=== PATIENT | female | born 1980 | race Caucasian/White ===

== ENCOUNTER 2018-03-05 20:26 | Emergency (ER) | payer MEDICAID ==
[2018-03-05 20:41] LABS: URINE APPEARANCE CLEAR; URINE BILIRUBIN NEGATIVE (NEGATIVE); URINE BLOOD SMALL (NEGATIVE); URINE COLOR YELLOW; URINE GLUCOSE (UA) NEGATIVE (NEGATIVE); URINE KETONE NEGATIVE (NEGATIVE); URINE LEUKOCYTE ESTERASE MODERATE (NEGATIVE); URINE NITRITE NEGATIVE (NEGATIVE); URINE PROTEIN NEGATIVE (NEGATIVE); URINE UROBILINOGEN 0.2 E.U./dL (0.20 - 1.00)
[2018-03-05 20:54] LABS: URINE RBC 0 - 2 (NONE SEEN); URINE WBC 16 - 20 (0-2/hpf)
[2018-03-05 20:55] LABS: URINE BACTERIA 1+; URINE YEAST MODERATE
--- NOTE | 2018-03-05 21:18 | Emergency Department Record ---
History of Present Illness - General Chief complaint: Female Urogenital Problem Stated complaint: UTI Time Seen by Provider: 03/05/18 21:08 Source: Patient Mode of Arrival: Ambulatory Limitations: No limitations - History of Present Illness Initial comments: pt has urgency, frequency, dysurea for a week w occasional nausea. pt states it feels like previous utis. no v or fevers MD Complaint: Dysuria Onset/Timin -: Week(s) Location: Suprapubic Severity: Moderate Severity scale (1-10): 8 Quality: Burning Consistency: Constant, Getting worse Worsens with: None Patient : No Associated Symptoms: Dysuria - Related Data Home Medications Medication Instructions Recorded Confirmed Last Taken Buspirone HCl [Buspar] 5 mg PO TID 03/05/18 03/05/18 Unknown Loratadine 10 mg PO DAILY 03/05/18 03/05/18 Unknown Omeprazole 20 mg PO BID 03/05/18 03/05/18 Unknown Ranitidine HCl 150 mg PO BID 03/05/18 03/05/18 Unknown Ziprasidone HCl [Geodon] 40 mg PO BID 03/05/18 03/05/18 Unknown Previous Rx's Medication Instructions Recorded Phenazopyridine HCl [Pyridium] 200 mg PO TID #5 tab 03/05/18 Sulfamethoxazole/Trimethoprim 1 each PO BID #6 tablet 03/05/18 [Bactrim Ds Tablet] Allergies Allergy/AdvReac Type Severity Reaction Status Date / Time No Known Drug Allergies Allergy Verified 08/05/16 22:24 Travel Screening - Travel/Exposure Within Last 30 Days Have you traveled within the last 30 days?: No Review of Systems Reviewed: No additional complaints except as noted below Constitutional: Reports: As per HPI. Denies: Chills, Fever, Malaise, Night sweats, Weakness, Weight change Eyes: Reports: As per HPI. Denies: Eye discharge, Eye pain, Photophobia, Vision change ENT: Reports: As per HPI. Denies: Congestion, Dental pain, Ear pain, Epistaxis , Hearing loss, Throat pain Respiratory: Reports: As per HPI. Denies: Cough, Dyspnea, Hemoptysis, Stridor, Wheezes Cardiovascular: Reports: As per HPI. Denies: Arrhythmia, Chest pain, Dyspnea on exertion, Edema, Murmurs, Orthopnea, Palpitations, Paroxysmal nocturnal dyspnea, Rheumatic Fever, Syncope Endocrine: Reports: As per HPI. Denies: Fatigue, Heat or cold intolerance, Polydipsia, Polyuria Gastrointestinal: Reports: As per HPI. Denies: Abdominal pain, Constipation, Diarrhea, Hematemesis, Hematochezia, Melena, Nausea, Vomiting Genitourinary: Reports: As per HPI, Dysuria, Frequency, Urgency. Denies: Abnormal menses, Discharge, Dyspareunia, Hematuria, Incontinence, Retention Musculoskeletal: Reports: As per HPI. Denies: Arthralgia, Back pain, Gout, Joint swelling, Myalgia, Neck pain Skin: Reports: As per HPI. Denies: Bruising, Change in color, Change in hair/ nails, Lesions, Pruritus, Rash Neurological: Reports: As per HPI. Denies: Abnormal gait, Confusion, Headache, Numbness, Paresthesias, Seizure, Tingling, Tremors, Vertigo, Weakness Psychiatric: Reports: As per HPI. Denies: Anxiety, Auditory hallucinations, Depression, Homicidal thoughts, Suicidal thoughts, Visual hallucinations Hematological/Lymphatic: Reports: As per HPI. Denies: Anemia, Blood Clots, Easy bleeding, Easy bruising, Swollen glands Past Medical History - SOCIAL HISTORY Smoking Status: Never smoker Alcohol Use: None Drug Use: None - RESPIRATORY Hx Respiratory Disorders: No - CARDIOVASCULAR Hx Cardio Disorders: No - NEURO Hx Neuro Disorders: No - GI Hx GI Disorders: Yes Hx Reflux: Yes - Hx Genitourinary Disorders: No - ENDOCRINE Hx Endocrine Disorders: Yes Hx Thyroid Disease: Yes - MUSCULOSKELETAL Hx Musculoskeletal Disorders: No - PSYCH Hx Psych Problems: Yes Hx Anxiety: Yes Hx Depression: Yes - HEMATOLOGY/ONCOLOGY Hx Hematology/Oncology Disorders: No Family Medical History Any Significant Family History?: No Physical Exam - General General Appearance: Alert, Oriented x3, Cooperative, No acute distress - Head Head exam: Normal inspection - Eye Eye exam: Normal appearance, PERRL, EOMI Pupils: Normal accommodation - ENT ENT exam: Normal exam, Mucous membranes moist, Normal external ear exam, Normal orophraynx Ear exam: Normal external inspection. negative: External canal tenderness Nasal Exam: Normal inspection. negative: Discharge, Sinus tenderness Mouth exam: Normal external inspection, Tongue normal Teeth exam: Normal inspection. negative: Dental caries Throat exam: Normal inspection. negative: Tonsillar erythema, Tonsillar exudate - Neck Neck exam: Normal inspection, Full ROM. negative: Tenderness - Respiratory Respiratory exam: Normal lung sounds bilaterally. negative: Respiratory distress - Cardiovascular Cardiovascular Exam: Regular rate, Normal rhythm, Normal heart sounds - GI/Abdominal GI/Abdominal exam: Soft, Normal bowel sounds. negative: Tenderness - Rectal Rectal exam: Deferred - exam: Deferred - Extremities Extremities exam: Normal inspection, Full ROM, Normal capillary refill. negative: Tenderness - Back Back exam: Reports: Normal inspection, Full ROM. Denies: Muscle spasm, Rash noted, Tenderness - Neurological Neurological exam: Alert, CN II-XII intact, Normal gait, Oriented X3 - Psychiatric Psychiatric exam: Normal affect, Normal mood - Skin Skin exam: Dry, Intact, Normal color, Warm Course Vital Signs 03/05/18 20:33 Temperature 98.1 F Pulse Rate 51 L Respiratory 19 Rate Blood Pressure 122/90 Pulse Ox 98 Medical Decision Making - Lab Data Lab Results 03/05/18 Range/Units 20:35 Urine Color Yellow Urine Appearance Clear Urine pH 5.5 (5.0-8.0) Ur Specific [place] 1.020 (1.002-1.030) Urine Protein Negative (NEGATIVE) Urine Glucose (UA) Negative (NEGATIVE) Urine Ketones Negative (NEGATIVE) Urine Blood Small H (NEGATIVE) Urine Nitrite Negative (NEGATIVE) Urine Bilirubin Negative (NEGATIVE) Urine Urobilinogen 0.2 (0.20 - 1.00) E.U./dL Ur Leukocyte Esterase Moderate H (NEGATIVE) Urine RBC 0 - 2 (NONE SEEN) Urine WBC 16 - 20 (0-2/hpf) Ur Epithelial Cells 7 - 10 (FEW) Urine Bacteria 1+ Urine Yeast Moderate Disposition Disposition: Discharge Clinical Impression: UTI (urinary tract infection) Qualifiers: Urinary tract infection type: acute cystitis Hematuria presence: without hematuria Qualified Code(s): N30.00 - Acute cystitis without hematuria Disposition: Home, Self-Care Condition: (1) Good Instructions: Urinary Tract Infection in Women (ED) Additional Instructions: follow up with family doctor. return sooner if worse Prescriptions: Phenazopyridine HCl [Pyridium] 200 mg PO TID #5 tab Sulfamethoxazole/Trimethoprim [Bactrim Ds Tablet] 1 each PO BID #6 tablet Quality - Quality Measures Quality Measures: N/A - Blood Pressure Screening Does Patient Have Any of the Following: No Blood Pressure Classification: Hypertensive Reading Systolic Measurement: 122 Diastolic Measurement: 90 Screening for High Blood Pressure: < Pre-Hypertensive BP, F/U Documented > [ [id number]] Pre-Hypertensive Follow-up Interventions: Follow-up with rescreen every year.
[2018-03-05] MEDS ORDERED: PHENAZOPYRIDINE HCL 95 MG TABLET PO ONE (21:27)
[2018-03-05] MEDS ORDERED: TMP/SMZ 160MG/800MG TAB PO ONE (21:27)
== END 2018-03-05 21:38 | disposition home or self-care (01) ==
LOC: ER 20:26
DX: R30.0 Dysuria (principal); R11.0 Nausea
CPT/HCPCS: 99283 ×2; 81001; 81025; J3490